=== PATIENT | female | born 1995 | race African-American/Black ===

== ENCOUNTER 2023-11-11 22:34 | Emergency (ER) | payer OTHER ==
[2023-11-11 22:54] VITALS: BP 113/69; PULSE 64; RESP 17; TEMP 98.6; BMI 38.2
[2023-11-11] MEDS ORDERED: LIDOCAINE 5% TOPICAL PATCH ONE (23:00)
[2023-11-11] MEDS: LIDOCAINE 5% TOPICAL PATCH TP ONE (23:05)
[2023-11-12] MEDS ORDERED: LIDOCAINE PATCH REMOVAL MC ONE (11:00)
== END 2023-11-12 01:43 | disposition home or self-care (01) ==
LOC: FER 22:34
DX: M54.50 Low back pain, unspecified (principal); M62.830 Muscle spasm of back; M51.26 Other intervertebral disc displacement, lumbar region
CPT/HCPCS: 72131-TC; 81025; 99284-25